=== PATIENT | female | born 1940 | race Caucasian/White ===

== ENCOUNTER → 2016-10-24 | Outpatient (CLI) | payer OTHER ==
--- NOTE | 2016-10-24 17:02 | MA ---
Screening Digital Mammogram With iCAD Analysis Clinical Indications: Routine screening. Technique: Standard cephalocaudal and mediolateral oblique projections were obtained. This examinatio n was processed by the iCAD computer aided detection system. Comparison: October 2015, September 2014, August 2013, August 2012, June 2011, May 2010, M ay 2008. Breast density: Type B; Scattered fibroglandular densities. Findings: CAD was reviewed. There is equivocal developing architectural change in the outer mid right breast. No suspicious microcalcifications are seen. The left breast is stable in appearance. Impression: Possible developing right breast architectural change requires further evaluation, BI-RAD S 0. Recommendation: Spot compression assessment of the right breast with ultrasound suggested if the abno rmality persists on diagnostic evaluation. [facility] will send a result letter to the patient.
== END ==
LOC: CIMAGING 10:30
DX: Z12.31 Encounter for screening mammogram for malignant neoplasm of breast (principal)
CPT/HCPCS: G0202

== ENCOUNTER → 2016-11-05 | Outpatient (CLI) | payer OTHER ==
--- NOTE | 2016-11-05 13:23 | MA ---
Diagnostic Digital Right Mammogram fracture History: Possible architectural distortion outer right breast. Comparison: Screening mammogram October 24, 2016, October 2015 and September 2014. Technique: A true lateral view, 3 spot compression views and off midline CC views by 5 degrees. Density: B Findings: Architectural distortion does not persist and was related to overlapping normal parenchymal structures.. Impression: Negative right breast. Recommendation: Screening mammogram in one year. Results and recommendation were communicated to the patient at the time of the examination.
== END ==
LOC: CIMAGING 12:33
DX: R92.2 Inconclusive mammogram (principal)
CPT/HCPCS: G0206